=== PATIENT | male | born 1995 | race African-American/Black ===

== ENCOUNTER 2021-04-11 19:49 | Emergency (ER) | payer BC ==
[2021-04-11] MEDS ORDERED: fentaNYL 100 MCG/2 ML SDV IVPUSH ONE ×2 (20:01)
--- NOTE | 2021-04-11 20:08 | EDM.PDOC ---
ED HPI GENERAL MEDICAL PROBLEM - General Chief Complaint: Lower Extremity Injury/Pain Stated Complaint: [facility] Time Seen by Provider: 04/11/21 19:49 - History of Present Illness INITIAL COMMENTS - FREE TEXT/NARRATIVE: 26-year-old male presents to the emergency room with right knee injury. He was brought in by EMS. Patient was playing basketball at the [facility] and something happened his medial knee became very painful and nonuseful he has pain over the top and front of his knee. He denies much numbness and tingling down his leg but he has some numbness in his knee itself. Patient denies any prior history of knee problems on the side. He is not on any routine medications. He is not aware of any other injuries associated with the event Right Knee Pain Score (Numeric/FACES): 9 - Related Data Allergies Allergy/AdvReac Type Severity Reaction Status Date / Time No Known Allergies Allergy Verified 04/11/21 20:02 Home Meds: Home Meds Hydrocodone/Acetaminophen [HYDROcodone-Acetaminophen 5-325 MG] 1 - 2 each PO Q6H PRN #30 tablet 04/11/21 [Rx] Hydrocodone/Acetaminophen [HYDROcodone-Acetaminophen 5-325 MG] 1 - 2 each PO Q6H PRN #30 tablet 04/11/21 [Rx] Review of Systems - Review of Systems Review Of Systems: See Below Constitutional: Reports: No Symptoms Respiratory: Reports: No Symptoms Cardiovascular: Reports: No Symptoms GI/Abdominal: Reports: No Symptoms ED EXAM, GENERAL - Physical Exam Exam: See Below Exam Limited By: No Limitations General Appearance: Alert, No Apparent Distress Head: Atraumatic, Normocephalic Neck: Normal Inspection, Supple, Non-Tender, Full Range of Motion Respiratory/Chest: No Respiratory Distress, Lungs Clear, Normal Breath Sounds Cardiovascular: Regular Rate, Rhythm, No Edema, No Murmur GI/Abdominal: Normal Bowel Sounds, Soft, Non-Tender Extremities: Other (Is what appears to be high riding patella. The tibiofemoral joint appears to be intact and articulates with gentle range of motion. ACL appears to be intact because of discomfort around the knee and having hard time assessing medial lateral collateral ligaments neurovascular status intact in foot) Course - Vital Signs Last Recorded V/S: Last Vital Signs Temp 36.4 C 04/11/21 20:00 Pulse 84 04/11/21 20:00 Resp 20 04/11/21 20:00 BP 122/86 04/11/21 20:00 Pulse Ox 99 04/11/21 20:00 - Orders/Labs/Meds Orders: Active Orders 24 hr Category Date Time Status Knee 3V Rt [CR] Stat Exams 04/11/21 19:55 Taken Acetaminophen/HYDROcodone [Willis 325-5 MG] Med 04/11/21 20:33 Once 1 tab PO ONETIME ONE Durable Medical Equipment for Discharge [DME for Oth 04/11/21 20:26 Ordered Discharge] [COMM] Stat Durable Medical Equipment for Discharge [DME for Oth 04/11/21 20:32 Ordered Discharge] [COMM] Stat Meds: Medications Discontinued Medications Generic Name Dose Route Start Last Admin Trade Name Freq PRN Reason Stop Dose Admin Fentanyl 50 mcg 04/11/21 20:01 04/11/21 20:05 Fentanyl 100 Mcg/2 Ml Sdv IVPUSH 04/11/21 20:02 50 mcg ONETIME ONE Administration Fentanyl 50 mcg 04/11/21 20:01 Fentanyl 100 Mcg/2 Ml Sdv IVPUSH 04/11/21 20:02 ONETIME ONE - Re-Assessments/Exams Free Text/Narrative Re-Assessment/Exam: 04/11/21 20:34 X-ray examination shows no acute fracture dislocation with femoral tibial articulation and around the knee the patella however is also high riding. Very suspicious for an avulsed patella tendon Case discussed with Dr. Bender, on-call orthopedic surgeon with [facility] the patient follow-up in the clinic on Wednesday show up n.p.o. anticipating surgery that day. Departure - Departure Time of Disposition: 20:36 Disposition: Home, Self-Care 01 Clinical Impression: Avulsion of right patellar tendon - Discharge Information Prescriptions: Hydrocodone/Acetaminophen [HYDROcodone-Acetaminophen 5-325 MG] 1 - 2 each PO Q6H PRN #30 tablet PRN Reason: Pain Hydrocodone/Acetaminophen [HYDROcodone-Acetaminophen 5-325 MG] 1 - 2 each PO Q6H PRN #30 tablet PRN Reason: Pain Referrals: PCP,None [Primary Care Provider] - Herberth Bender MD [Ordering Only Provider] - Forms: ED Department Discharge Additional Instructions: Return to the emergency room with any questions problems or worsening symptoms. Use the knee immobilizer at all times and use the crutches to assist you getting around. I sent a prescription for hydrocodone to the [place] pharmacy pick that up this ev ening take 1 or 2 every 6 hours as needed for pain. Do not drive or return to work within 12 hours of using this medication. On Wednesday morning show up at the [facility] clinic at 8:00 [place] time anticipating having surgery that day do not have anything to eat or drink after 11:00 [facility] time. Sepsis Event Note (ED) - Focused Exam Vital Signs: Vital Signs Temp Pulse Resp BP Pulse Ox 04/11/21 20:00 36.4 C 84 20 122/86 99 - My Orders Last 24 Hours: My Active Orders 04/11/21 19:55 Knee 3V Rt [CR] Stat 04/11/21 20:26 Durable Medical Equipment for Discharge [DME for Discharge] [COMM] Stat 04/11/21 20:32 Durable Medical Equipment for Discharge [DME for Discharge] [COMM] Stat 04/11/21 20:33 Acetaminophen/HYDROcodone [Willis 325-5 MG] 1 tab PO ONETIME ONE - Assessment/Plan Last 24 Hours: My Active Orders 04/11/21 19:55 Knee 3V Rt [CR] Stat 04/11/21 20:26 Durable Medical Equipment for Discharge [DME for Discharge] [COMM] Stat 04/11/21 20:32 Durable Medical Equipment for Discharge [DME for Discharge] [COMM] Stat 04/11/21 20:33 Acetaminophen/HYDROcodone [Willis 325-5 MG] 1 tab PO ONETIME ONE
[2021-04-11] MEDS ORDERED: Acetaminophen/HYDROcodone 325-5 MG Tab PO ONE (20:33)
--- NOTE | 2021-04-14 14:01 | CR ---
Right knee: 4 views of the right knee were obtained. Comparison: No previous knee imaging is available. Positioning is somewhat less than optimal for evaluation of lateral joint space. Difficult to exclude narrowing within the lateral joint space. Medial joint space is preserved. No joint effusion is seen. No acute osseous abnormality is appreciated. Patellar alignment may be somewhat abnormal. Impression: 1. Positioning somewhat less than optimal. Please correlate if patellar alignment is correct. 2. Difficult to exclude lateral joint space narrowing. 3. No acute fracture is appreciated. Diagnostic code #3
== END 2021-04-11 21:00 | disposition home or self-care (01) ==
LOC: JD.ED 19:49
DX: S81.001A Unspecified open wound, right knee, initial encounter (principal); X50.1XXA Overexertion from prolonged static or awkward postures, initial encounter; Y93.67 Activity, basketball
CPT/HCPCS: 73562; 96374; 99283; A9270; J3010